=== PATIENT | female | born 1970 | race Caucasian/White ===

== ENCOUNTER 2017-01-02 09:30 | Emergency (ER) | payer OTHER ==
[~2017-01-02] VITALS: Ht 152.4 cm; Wt 50.3 kg
[~2017-01-02 09:30] MED LIST: AMOXICILLIN875 MG PO; ULTRAM50 MG PO
[2017-01-02] MEDS ORDERED: KEFLEX500 MG PO (12:09)
[2017-01-02 12:26] VITALS: BP 155/89
== END 2017-01-02 12:27 | disposition home or self-care (01) ==
LOC: EXP 09:30 → EME 09:30 → EXP 12:27
PROC: 3E0234Z Introduction of Serum, Toxoid and Vaccine into Muscle, Percutaneous Approach (ICD-10-PCS; principal; 2017-01-02)
DX: S61.216A Laceration without foreign body of right little finger without damage to nail, initial encounter (principal); S67.196A Crushing injury of right little finger, initial encounter; Y99.0 Civilian activity done for income or pay; W23.0XXA Caught, crushed, jammed, or pinched between moving objects, initial encounter; Z23 Encounter for immunization
CPT/HCPCS: 73140; 99281; 99284

== ENCOUNTER 2018-03-27 07:11 | Emergency (ER) | payer OTHER ==
[~2018-03-27] VITALS: Ht 154.9 cm; Wt 56.4 kg
[~2018-03-27 07:11] MED LIST changes: +KEFLEX500 MG PO
[2018-03-27 07:49] LABS: HEMATOCRIT 39.4 % (36.0-46.0); HEMOGLOBIN 13.8 G/DL (11.9-15.5); MCH 32.9 PG (29.0-34.0); MCV 93.8 FL (83-99); PLATELET COUNT 191 K/uL (156-360); RBC DIS.WIDTH-CV 13.2 % (11.8-14.6); WHITE BLOOD COUNT 11.5 K/uL (4.1-10.2)
[2018-03-27 08:09] LABS: CHLORIDE 107 mEq/L (99-109); POTASSIUM 4.2 mEq/L (3.7-5.4); SODIUM 137 mEq/L (136-147)
[2018-03-27 08:10] LABS: GLUCOSE 99 mg/dL (70-99)
[2018-03-27 08:14] LABS: CREATININE 1.1 mg/dL (0.6-1.3); GFR ESTIMATE (CALCULATED) 56 mL/min/
[2018-03-27 08:15] LABS: UREA NITROGEN (BUN) 12 mg/dL (9-23)
[2018-03-27] MEDS ORDERED: NAPROSYN500 MG PO (09:47)
[2018-03-27] MEDS ORDERED: ULTRAM50 MG PO (09:47)
[2018-03-27] MEDS ORDERED: CLINDAMYCIN HC300 MG PO (09:47)
[2018-03-27 10:45] VITALS: BP 104/65
== END 2018-03-27 10:47 | disposition home or self-care (01) ==
LOC: EME 07:11
PROVIDERS: Nurse Practitioner Family
DX: K04.7 Periapical abscess without sinus (principal); K03.81 Cracked tooth; I10 Essential (primary) hypertension; E05.00 Thyrotoxicosis with diffuse goiter without thyrotoxic crisis or storm
CPT/HCPCS: 70487; 80048; 85027; 99281; 99284; J1885; J7030